=== PATIENT | female | born 1975 | race Hispanic/Latino ===

== ENCOUNTER 2019-01-08 00:03 | Emergency (ER) | payer SELFPAY ==
[~2019-01-08] VITALS: Ht 160 cm; Wt 79.4 kg
[2019-01-08 01:09] LABS: CLARITY,URINE CLEAR (CLEAR); COLOR,URINE STRAW (YELLOW); LEUKOCYTE ESTERASE ,URINE NEGATIVE (NEGATIVE); NITRITE,URINE NEGATIVE (NEGATIVE); PROTEIN,URINE DIPSTICK NEGATIVE (NEGATIVE)
[2019-01-08 01:10] LABS: BILIRUBIN,URINE NEGATIVE (NEGATIVE); KETONES,URINE NEGATIVE (NEGATIVE); PREGNANCY TEST, URINE NEGATIVE (NEGATIVE); URINE UROBILINOGEN 0.2 mg/dL (0.2 - 1)
[2019-01-08 01:17] LABS: BACTERIA,URINE MODERATE /HPF; EPITHELIAL CELLS,URINE FEW /LPF; RBC,URINE 0-5 /HPF (0-5); WBC,URINE (MAN) 0-5 /HPF (0-5)
--- NOTE | 2019-01-08 01:46 | Diagnostic Imaging Report ---
EXAM: ABDOMEN ACUTE SERIES W/PA CXR, DATE: 01/08/2019 12:30 AM INDICATION: Pain. Bloating. Nausea. COMPARISON: Chest x-ray dated 04/25/2013. FINDINGS: LINES/TUBES: None BOWEL PATTERN: No evidence for obstruction. Moderate to large volume of stool within the colon. SOFT TISSUES: No abnormal calcifications. No mass effect. CHEST: No acute cardiopulmonary disease. BONES: No acute findings. IMPRESSION: Moderate to large volume of stool within the colon. Nonobstructive bowel gas pattern. No acute thoracic abnormality. Signed by: Dr. Parveen Orozco M.D. on 01/08/2019 1:43 AM
[2019-01-08 01:55] VITALS: BP_SYST 5
== END 2019-01-08 01:57 | disposition home or self-care (01) ==
LOC: ER 00:03
DX: R10.12 Left upper quadrant pain (principal); K59.00 Constipation, unspecified; E03.9 Hypothyroidism, unspecified
CPT/HCPCS: 74022; 81001; 81025; 93005; 99283

== ENCOUNTER 2021-10-07 00:39 | Emergency (ER) | payer SELFPAY ==
[~2021-10-07] VITALS: Ht 160 cm; Wt 88.5 kg
[2021-10-07] MEDS ORDERED: MECLIZINE HCL 12.5 MG TAB PO ONE (01:15)
[2021-10-07] MEDS ORDERED: MECLIZINE HCL 12.5 MG TAB ONE (01:22)
[2021-10-07] MEDS ORDERED: MECLIZINE HCL12.5 MG PO (01:39)
== END 2021-10-07 01:48 | disposition home or self-care (01) ==
LOC: ER 00:58
DX: R42 Dizziness and giddiness (principal); H92.01 Otalgia, right ear; E03.9 Hypothyroidism, unspecified
CPT/HCPCS: 93005; 99283; J8597